=== PATIENT | female | born 2000 | race Caucasian/White ===

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

== ENCOUNTER 2018-03-11 08:53 | Emergency (ER) | payer OTHER ==
[~2018-03-11] VITALS: Ht 160 cm; Wt 95.5 kg
[2018-03-11] MEDS ORDERED: IBUP-2354 PO (08:56)
[2018-03-11] MEDS ORDERED: KETOROLAC TROMETHAMINE 60 MG/2 ML VIAL IM ONE (11:15)
[2018-03-11] MEDS ORDERED: ONDANSETRON HCL 4 MG/2 ML VIAL IVP ONE (12:15)
[2018-03-11] MEDS ORDERED: OxyCODONE HCL/ACETAMINOPHEN 5-325 MG TABLET PO ONE (12:15)
[2018-03-11 13:24] VITALS: BP 117/67
== END 2018-03-11 14:33 | disposition home or self-care (01) ==
LOC: EMS 08:54
DX: S30.0XXA Contusion of lower back and pelvis, initial encounter (principal); W10.9XXA Fall (on) (from) unspecified stairs and steps, initial encounter; Y93.89 Activity, other specified; Y92.89 Other specified places as the place of occurrence of the external cause; Y99.0 Civilian activity done for income or pay
CPT/HCPCS: 72100; 96372; 99283; J1885; J2405

== ENCOUNTER 2019-08-26 12:55 | Emergency (ER) | payer OTHER ==
[~2019-08-26] VITALS: Ht 162.6 cm; Wt 95.5 kg
[~2019-08-26 12:55] MED LIST: IBUP-2271 PO
[2019-08-26 12:58] VITALS: BP 137/76
== END 2019-08-26 14:57 | disposition home or self-care (01) ==
LOC: EMS 12:57
DX: U07.1 COVID-19 (principal); R51 Headache; R19.7 Diarrhea, unspecified; F12.90 Cannabis use, unspecified, uncomplicated
CPT/HCPCS: 99283; U0003

== ENCOUNTER 2020-09-29 01:12 | Emergency (ER) | payer OTHER ==
[~2020-09-29] VITALS: Ht 162.6 cm; Wt 93.2 kg
[2020-09-29] MEDS ORDERED: ACETAMINOPHEN 500 MG TABLET PO ONE (02:30)
[2020-09-29] MEDS ORDERED: IBUPROFEN 800 MG TABLET PO ONE (02:30)
[2020-09-29 04:00] LABS: COVID AG,FIA SOURCE NASOPHARYNGEAL
[2020-09-29 05:12] VITALS: BP 129/69
== END 2020-09-29 05:24 | disposition home or self-care (01) ==
LOC: EMS 01:15
DX: J02.9 Acute pharyngitis, unspecified (principal); F12.90 Cannabis use, unspecified, uncomplicated; Z20.822 Contact with and (suspected) exposure to COVID-19
CPT/HCPCS: 87430; 99283

== ENCOUNTER 2021-02-21 06:35 | Emergency (ER) | payer OTHER ==
[~2021-02-21] VITALS: Ht 162.6 cm; Wt 92.7 kg
[2021-02-21 08:05] LABS: BASOPHILS % (AUTO) 0.2 % (0.0-2.0); EOSINOPHILS % (AUTO) 0.8 % (1.0-6.0); HEMATOCRIT 40.5 % (36-46); HEMOGLOBIN 14.1 g/dL (12.0-16.0); LYMPHOCYTES # (AUTO) 3.1 K/uL (1.0-4.8); LYMPHOCYTES % (AUTO) 39.2 % (22.0-44.0); MEAN CORPUSCULAR HEMOGLOBIN 30.4 pg (26.0-34.0); MEAN CORPUSCULAR HGB CONC 34.8 G/dL (31.0-37.0); MEAN CORPUSCULAR VOLUME 87 fL (80-100); MONOCYTES # (AUTO) 0.6 K/uL (0.1-1.0); MONOCYTES % (AUTO) 7.6 % (2.0-9.0); NEUTROPHILS # (AUTO) 4.1 K/uL (1.8-7.7); NEUTROPHILS % (AUTO) 52.2 % (40.0-70.0); PLATELET COUNT (AUTO) 319 K/uL (150-450); RED BLOOD CELL COUNT(AUTO) 4.64 MIL/uL (4.00-5.20); RED CELL DISTRIBUTION WIDTH 12.8 % (11.5-14.5)
[2021-02-21 08:15] LABS: ANION GAP 8 mmol/L (8-16); CALCIUM, TOTAL 8.7 mg/dL (8.8-10.5); CARBON DIOXIDE 25 mmol/L (22-29); CHLORIDE 107 mmol/L (98-107); CREATININE 0.57 mg/dL (0.60-1.30); GLOMERULAR FILTR. RATE CALC > 60 mL/min (>60); GLUCOSE,RANDOM 95 mg/dL (70-110); POTASSIUM 3.9 mmol/L (3.5-5.1); SODIUM SERUM 140 mmol/L (136-145); UREA NITROGEN, BLOOD 5 mg/dL (7-18)
[2021-02-21 08:38] LABS: ALANINE AMINOTRANSFERASE 30 U/L (12-78); ALBUMIN 3.8 g/dL (3.4-5.0); ALKALINE PHOSPHATASE 75 U/L (46-116); ASPARTATE AMINOTRANSFERASE 17 U/L (15-37); BILIRUBIN,TOTAL 0.3 mg/dL (0.1-1.0); HCG,QUANTITATIVE 2161 mIU/mL (0-6); TOTAL PROTEIN, SERUM 7.5 g/dL (6.4-8.2)
[2021-02-21 11:36] LABS: COVID AG,FIA SOURCE NASOPHARYNGEAL
[2021-02-21 12:51] VITALS: BP 119/95
[2021-02-21 13:58] LABS: APPEARANCE,URINE CLEAR (CLEAR); BILIRUBIN,URINE NEGATIVE (NEGATIVE); GLUCOSE, URINE (UA) NEGATIVE (NEGATIVE); KETONES,URINE 15 mg/dL (NEGATIVE); LEUKOCYTE ESTERASE ,URINE NEGATIVE (NEGATIVE); NITRATE,URINE NEGATIVE (NEGATIVE); OCCULT BLOOD,URINE NEGATIVE (NEGATIVE); PH,URINE 6.5 (5.0-8.0); PROTEIN,URINE NEGATIVE (NEGATIVE); UROBILINOGEN,URINE 0.2 mg/dL (<=1.0)
[2021-02-21 14:09] LABS: BACTERIA,URINE None Seen /HPF (None Seen); RBC,URINE None Seen /HPF (0-2); SQUAMOUS EPITHELIAL CELL,UR Few /LPF (None Seen); WBC,URINE 0-2 /HPF (0-5)
== END 2021-02-21 13:35 | disposition short-term general hospital (02) ==
LOC: EMS 06:36
DX: O26.891 Other specified pregnancy related conditions, first trimester (principal); R10.31 Right lower quadrant pain; Z3A.01 Less than 8 weeks gestation of pregnancy; Z79.899 Other long term (current) drug therapy; Z20.822 Contact with and (suspected) exposure to COVID-19
CPT/HCPCS: 76801; 76817; 80053; 81001; 84702; 85025; 86850; 86900; 86901; 99285

== ENCOUNTER 2024-06-08 10:25 | Emergency (ER) | payer MEDICAID, OTHER ==
[~2024-06-08] VITALS: Ht 157.5 cm; Wt 104.5 kg
[2024-06-08 10:30] VITALS: TEMP 98.2
[2024-06-08 10:57] LABS: BASOPHILS % (AUTO) 0.2 % (0.0-2.0); EOSINOPHILS % (AUTO) 0.5 % (1.0-6.0); HEMATOCRIT 40.9 % (36-46); HEMOGLOBIN 13.7 g/dL (12.0-16.0); LYMPHOCYTES # (AUTO) 3.1 K/uL (1.0-4.8); LYMPHOCYTES % (AUTO) 26.8 % (22.0-44.0); MEAN CORPUSCULAR HEMOGLOBIN 30.2 pg (26.0-34.0); MEAN CORPUSCULAR HGB CONC 33.5 G/dL (31.0-37.0); MEAN CORPUSCULAR VOLUME 90 fL (80-100); MONOCYTES # (AUTO) 0.7 K/uL (0.1-1.0); MONOCYTES % (AUTO) 6.3 % (2.0-9.0); NEUTROPHILS # (AUTO) 7.7 K/uL (1.8-7.7); NEUTROPHILS % (AUTO) 66.2 % (40.0-70.0); PLATELET COUNT (AUTO) 339 K/uL (150-450); RED BLOOD CELL COUNT(AUTO) 4.54 MIL/uL (4.00-5.20); RED CELL DISTRIBUTION WIDTH 13.7 % (11.5-14.5); WHITE BLOOD COUNT (AUTO) 11.7 K/uL (4.5-11.0)
[2024-06-08 12:55] VITALS: BP 122/77; PULSE 81; RESP 17; O2SAT 99
== END 2024-06-08 12:58 | disposition home or self-care (01) ==
LOC: EMS 10:28
DX: O20.0 Threatened abortion (principal); F12.90 Cannabis use, unspecified, uncomplicated; Z72.89 Other problems related to lifestyle
CPT/HCPCS: 76801; 84702; 85025; 86901; 99284